=== PATIENT | male | born 1975 | race Caucasian/White ===

== ENCOUNTER 2019-02-03 06:01 | Inpatient (IN) | payer BC, OTHER ==
[~2019-02-03] VITALS: Ht 160 cm; Wt 70.6 kg
[2019-02-03] MEDS ORDERED: SODIUM CHLORIDE 0.9% 500 ML IV ONE (06:30)
[2019-02-03] MEDS ORDERED: ASPirin 81 mg TAB PO ONE (06:30)
[2019-02-03 07:44] LABS: Basophils # (auto) 0 uL; Lymphocytes # (auto) 1.9 uL; Monocytes # (auto) 0.5 uL
[2019-02-03 07:46] LABS: Basophils % (auto) 0.5 % (0.0-2.0); Eosinophils # (auto) 0.1 uL; Eosinophils % (auto) 0.9 % (0.0-7.0); Hematocrit 50.5 % (41.0-53.0); Hemoglobin 18.1 g/dL (13.5-17.5); Lymphocytes % (auto) 30.3 % (10.0-50.0); Mean Corpuscular Hemoglobin 31.1 pg (28.0-32.0); Mean Corpuscular Hgb Conc. 35.9 g/dL (32.0-36.0); Mean Corpuscular Volume 86.7 fL (80.0-100.0); Monocytes % (auto) 8.3 % (0.0-12.0); Neutrophils # (auto) 3.7 uL; Nucleated Red Blood Cells % 0.1 %; Platelet Count (auto) 215 10^3/uL (140-450); Red Blood Cells 5.82 10^6/uL (4.5-5.90); White Blood Cell 6.2 10^3/uL (4.4-10.8)
[2019-02-03 07:59] LABS: INR 1.03 (0.9-1.15); Partial Thromboplastin Time 26.4 sec (23.64-32.05)
[2019-02-03 08:02] LABS: Alanine Aminotransferase 36 U/L (16-61); Albumin 4.3 g/dL (3.4-5.0); Anion Gap 6 (5-15); Aspartate Aminotransferase 22 U/L (15-37); BUN/Creatinine Ratio 12.5; Blood Urea Nitrogen 13 mg/dL (7-18); Calcium 8.9 mg/dL (8.5-10.1); Carbon Dioxide 28 mmol/L (21-32); Chloride 107 mmol/L (98-107); GFR African American 99 mL/min; GFR Non-African American 82 mL/min; Glucose 103 mg/dL (74-106); Potassium 4.1 mmol/L (3.5-5.1); Sodium 141 mmol/L (136-145)
[2019-02-03 08:06] LABS: Alkaline Phosphatase 107 U/L (45-117); Bilirubin, Total 0.6 mg/dL (0.2-1.0); Total Protein 7.6 g/dL (6.4-8.2)
[2019-02-03 08:26] LABS: Urine Bacteria NONE SEEN /hpf (None Seen); Urine Blood Negative /uL (Negative); Urine Specific Gravity 1.002 (1.001-1.035); Urine WBC <1 /hpf (0 - 3)
[2019-02-03] MEDS ORDERED: IOHEXOL 350 MG/ML 100ML IJ ONE (08:45)
[2019-02-03] MEDS ORDERED: LIDOCAINE 2%HCL (LOCAL ANESTH.) INJ 20ML MDV ONE ×2 (08:45→09:18)
[2019-02-03] MEDS ORDERED: ANGIOMAX 250 MG VIAL IV ONE (08:46)
[2019-02-03] MEDS ORDERED: SODIUM CHL 0.9% 50 ML ONE (08:47)
[2019-02-03] MEDS ORDERED: fentaNYL CITRATE 100 MCG/2 ML VL ONE (08:47)
[2019-02-03] MEDS ORDERED: MIDAZOLAM HCL 1MG/1ML-2 ML VIAL ONE (08:47)
[2019-02-03] MEDS ORDERED: VERAPAMIL 2.5MG/ML INJ 2ML VIAL IV ONE (08:49)
[2019-02-03] MEDS ORDERED: IODIXANOL 320MG/ML 100ML BTL IV ONE (09:30)
[2019-02-03] MEDS ORDERED: TICAGRELOR 90 MG TAB ONE (09:52)
[2019-02-03] MEDS ORDERED: EPTIFIBATIDE INJ (2MG/ML) 10ML VIAL IV ONE (09:56)
--- NOTE | 2019-02-03 11:30 | NUR ---
RECEIVED REPORT FROM SOUND RECORDIST NURSE.
--- NOTE | 2019-02-03 11:54 | NUR ---
PATIENT BROUGHT TO ROOM 295B, VITALS STABLE. TR BAND ON LEFT WRIST. MANAGER MARKET NURSE STATED THAT 2CC OF AIR ALREADY REMOVED FROM BAND, NO BLOOD NOTED. WILL CONTINUE TO REMOVE AIR PER PROTOCOL AND CONTINUE TO MONITOR FOR BLEEDING.
[2019-02-03 13:00] VITALS: BP 121/68
[2019-02-03] MEDS ORDERED: ASPI-404 PO (13:01)
[2019-02-03] MEDS ORDERED: FAMO-12 PO (13:01)
[2019-02-03 14:00] VITALS: BP 118/70
[2019-02-03 16:38] VITALS: BP 117/74
--- NOTE | 2019-02-03 17:00 | NUR ---
TR BAND COMPLETELY DEFLATED OVER LAST 5 HOURS AT 1CC PER HALF HOUR. NO BLEEDING NOTED WITH EACH AIR ASPIRATION. TR BAND REMOVED. NO SWELLING, OR ECCHYMOSIS NOTED. BAND AID PLACED OVER THE INCISION SITE. WILL CONTINUE TO MONITOR FOR SWELLING AND OR BLEEDING.
--- NOTE | 2019-02-03 19:44 | NUR ---
RECEIVED PATIENT FROM DAY SHIFT RN. PATIENT RESTING IN BED. NO S/S OF DISTRESS NOTED. DENIED PAIN FOR NOW. DRESSING ON LEFT WRIST C/D/I. POC INSTRUCTED AND ENCOURAGED PATIENT TO CALL FOR INTERIOR DESIGN DIRECTOR IF NEEDED. BED IN LOWEST POSITION WITH SIDE RAILS UP X 2. CALL RAMOS WITHIN REACH. CONTINUE TO MONITOR FOR CHANGES Q1H AND PRN.
[2019-02-03] MEDS: TICAGRELOR 90 MG TAB PO SCH (21:44)
[2019-02-03] MEDS: CARVEDILOL 3.125 MG TAB PO SCH (21:45)
[2019-02-03] MEDS ORDERED: ATORVASTATIN 20 MG TAB PO SCH (22:00)
--- NOTE | 2019-02-03 22:00 | NUR ---
SCHEDULED MEDICATION GIVEN ORDERED. INSTRUCTED PATIENT ON SIDE EFFECTS OF MEDICATIONS. PATIENT VERBALIZED UNDERSTANDING. CONTINUE TO MONITOR.
--- NOTE | 2019-02-03 23:00 | NUR ---
REASSESSED BP 127/72, HR 72. CONTINUE CARE.
--- NOTE | 2019-02-04 02:35 | NUR ---
PATIENT SLEEPING. NO S/S OF DISTRESS NOTED. CONTINUE CARE.
[2019-02-04 05:38] VITALS: BP 103/68
--- NOTE | 2019-02-04 07:25 | NUR ---
Opening Shift Note Assumed care of patient, awake and alert. No S/S of distress/SOB or Chest pain reported at this time, left wrist dressing cdi. Instructed on POC and to call for assist PRN, call light within reach, will continue to monitor for changes Q1hr and PRN.
[2019-02-04 08:00] VITALS: BP 109/83
--- NOTE | 2019-02-04 08:40 | NUR ---
CARDIOLOGY DR RAE AT BEDSIDE, DISCUSSING POC WITH PT, PT CLEARED FOR DISCHARGE, CONT CARE
[2019-02-04 08:56] VITALS: BP 109/83
[2019-02-04] MEDS: TICAGRELOR 90 MG TAB PO SCH (09:46)
[2019-02-04] MEDS: CARVEDILOL 3.125 MG TAB PO SCH (09:47)
[2019-02-04] MEDS ORDERED: ASPirin 81 mg TAB PO SCH (10:00)
[2019-02-04 12:46] VITALS: BP 108/76
[2019-02-04 14:34] VITALS: BP 108/76
--- NOTE | 2019-02-04 15:18 | NUR ---
DISCHARGE Discharge instructions given as ordered. Encourage to follow up with PMD as instructed. Appointment made to follow up with Dr Malik February 14 @ 3:00pm. All questions and concerns addressed. Patient verbalized understanding. Medication reconciliation form completed and copy given to patient. IV removed with catheter intact, pressure dressing applied. Telemetry unit returned to ICU. Patient ambulated to [facility] with all personal belongings, accompanied by staff and . No distress noted at time of departure.
== END 2019-02-04 13:16 | disposition home or self-care (01) | DRG 247 ==
LOC: ER 06:01 → TELE-WESTW 11:19
PROVIDERS: ADMIT Internal Medicine; ATTEND Internal Medicine
PROC: 027034Z Dilation of Coronary Artery, One Artery with Drug-eluting Intraluminal Device, Percutaneous Approach (ICD-10-PCS; principal; 2019-02-03)
PROC: 4A023N7 Measurement of Cardiac Sampling and Pressure, Left Heart, Percutaneous Approach (ICD-10-PCS; 2019-02-03)
PROC: B211YZZ Fluoroscopy of Multiple Coronary Arteries using Other Contrast (ICD-10-PCS; 2019-02-03)
PROC: B215YZZ Fluoroscopy of Left Heart using Other Contrast (ICD-10-PCS; 2019-02-03)
DX: I25.110 Atherosclerotic heart disease of native coronary artery with unstable angina pectoris (principal); I10 Essential (primary) hypertension; K21.9 Gastro-esophageal reflux disease without esophagitis; Z82.49 Family history of ischemic heart disease and other diseases of the circulatory system; Z87.891 Personal history of nicotine dependence
CPT/HCPCS: 36415; 71046; 80053; 81001; 84484; 85025; 85610; 85730; G0378; J2250; Q9967

== ENCOUNTER 2019-02-08 00:24 | Inpatient (IN) | payer BC | END 2019-02-08 18:15 | disposition home or self-care (01) | LOC: ER 00:24 → TELE-WESTW 00:25 ==